=== PATIENT | male | born 1985 | race Hispanic/Latino ===

== ENCOUNTER 2018-10-17 16:43 | Emergency (ER) | payer OTHER ==
[~2018-10-17] VITALS: Ht 175.3 cm; Wt 90.9 kg
[2018-10-17] MEDS ORDERED: MUCI600T31 PO (16:49)
[2018-10-17 20:04] LABS: INFLUENZA A AMPLIFICATION NEGATIVE (NEGATIVE); INFLUENZA B AMPLIFICATION NEGATIVE (NEGATIVE)
--- NOTE | 2018-10-17 20:39 | REP ---
Clinical: Cough and shortness of breath . Comparison: None . Technique: PA and lateral. Findings: The mediastinum and cardiac silhouette are normal. The lung gonzalez are clear and without acute consolidation, effusion, or pneumothorax. The skeletal structures are intact and normal. Impression: 1. No acute cardiopulmonary process. Electronically Signed by Nicola Bhandari MD 10/17/2018 08:30 P
[2018-10-17] MEDS ORDERED: TUSS1CAP5 PO (21:08)
[2018-10-17] MEDS ORDERED: TUSSICAPS ER 10/8MG CAPSULE PO ONE (21:15)
[2018-10-17 21:19] VITALS: BP 126/73
[2018-10-18] MEDS ORDERED: TUSS1SUS2 PO (12:43)
== END 2018-10-17 21:45 | disposition home or self-care (01) ==
LOC: M ED 16:43
DX: J40 Bronchitis, not specified as acute or chronic (principal)